=== PATIENT | male | born 1950 | race Caucasian/White ===

== ENCOUNTER 2017-04-19 11:47 | Emergency (ER) | payer OTHER ==
[~2017-04-19] VITALS: Ht 177.8 cm; Wt 72.2 kg
[2017-04-19 13:33] LABS: HEMATOCRIT 47.5 % (38.0-50.0); MCH 29.5 PG (29.0-34.0); MCHC 33.1 G/DL (30.0-36.0); MCV 89.3 FL (86-99); MEAN PLAT.VOLUME 9.9 uM^3 (9.0-12.4); PLATELET COUNT 241 K/uL (156-360); RBC DIS.WIDTH-CV 14.2 % (11.8-14.6); RBC DIS.WIDTH-SD 46.4 % (39-53); RED BLOOD COUNT 5.32 M/uL (4.00-5.50); WHITE BLOOD COUNT 20.8 K/uL (4.1-10.2)
[2017-04-19 13:43] LABS: CHLORIDE 99 mEq/L (99-109); SODIUM 139 mEq/L (136-147)
[2017-04-19 13:45] LABS: GLUCOSE 123 mg/dL (70-99)
[2017-04-19 13:46] LABS: ANION GAP 13 MEQ/L (2-14)
[2017-04-19 13:47] LABS: TOTAL BILIRUBIN 0.5 mg/dL (0.0-1.0)
[2017-04-19 13:48] LABS: ALKALINE PHOSPHATASE 61 IU/L (3-129)
[2017-04-19 13:49] LABS: GFR ESTIMATE (CALCULATED) > 59 mL/min/
[2017-04-19 13:50] LABS: UREA NITROGEN (BUN) 14 mg/dL (9-23)
[2017-04-19 13:52] LABS: LIPASE 9 U/L (1.0-51.0)
[2017-04-19 17:30] VITALS: BP 154/76
== END 2017-04-19 17:30 | disposition home or self-care (01) ==
LOC: EME 11:47
PROVIDERS: Nurse Practitioner Family
DX: K40.90 Unilateral inguinal hernia, without obstruction or gangrene, not specified as recurrent (principal); D72.829 Elevated white blood cell count, unspecified; Z85.46 Personal history of malignant neoplasm of prostate; F17.200 Nicotine dependence, unspecified, uncomplicated
CPT/HCPCS: 74177; 80053; 83605; 83690; 85027; 99281; 99285; J2270; J2405; J7030